=== PATIENT | male | born 1935 | race Caucasian/White ===

== ENCOUNTER 2018-04-26 07:23 | Emergency (ER) | payer SELFPAY ==
[~2018-04-26] VITALS: Ht 180.3 cm; Wt 113.6 kg
[~2018-04-26 07:23] MED LIST: ALFUZOSIN HCL E10 MG PO; AMLODIPINE5 MG PO; ATACAND8 MG PO; BAYER ASPIRIN E81 MG PO; BISOPROL FUM5 MG OR; BISOPROL FUM5 MG PO; CANDESARTAN CIL16 MG PO; DIGOX0.125 MG PO; DIGOXIN0.25 MG PO; LIPITOR10 MG PO; LIPITOR20 M1 PO; METO50TA52 PO; PRADAXA150 MG PO; TOPAMAX100 M1 PO; TOPIRAMATE100 MG PO; WARFARIN3 MG PO
[2018-04-26 08:05] VITALS: BP 155/93
== END 2018-04-26 08:05 | disposition left against medical advice (07) | DRG 951 ==
LOC: ED 07:23 → LWOBS 08:02 → ED 08:02 → LWOBS 08:05
DX: Z91.19 Patient's noncompliance with other medical treatment and regimen (principal)